=== PATIENT | male | born 1990 | race Two or more races ===

== ENCOUNTER 2022-04-25 10:29 | Emergency (ER) | payer OTHER, SELFPAY ==
--- NOTE | ~2022-04-25 | XR_ITS ---
EXAMINATION: XR CHEST CLINICAL INFORMATION: Chest pain COMPARISON: None TECHNIQUE: 2 views of the chest were obtained. FINDINGS: No significant abnormality is noted involving the heart, lungs, mediastinum, bony thorax or soft tissues. XR/XR chest 2V IMPRESSION: Unremarkable examination.
[2022-04-25 10:33] VITALS: BP 154/100; PULSE 80; RESP 16; TEMP 37; O2SAT 96; BMI 25.3
--- NOTE | 2022-04-25 10:35 | ECG_ITS ---
Test Reason : chest pain Blood Pressure : / mmHG Vent. Rate : 081 BPM Atrial Rate : 081 BPM P-R Int : 150 ms QRS Dur : 084 ms QT Int : 350 ms P-R-T Axes : 073 -45 058 degrees QTc Int : 406 ms Normal sinus rhythm with sinus arrhythmia Left axis deviation Cannot rule out Anterior infarct , age undetermined ; could also be from body habitus Abnormal ECG No previous ECGs available Referred By: Generic ED Physician Electronically Signed By:ROBERTO SANDERS
--- NOTE | 2022-04-25 10:41 | ED.CHESTPAIN ---
HPI - Chest Pain General Chief Complaint: Chest Pain Stated Complaint: Chest pain Time Seen by Provider: 04/25/22 10:41 Source: patient Mode of arrival: ambulatory Limitations: no limitations History of Present Illness HPI narrative: chest pain started 2 months ago, slow process, left side front into the back worse with movement. No Cough no shortness of breath. patient smokes marijuana. complaint: chest pain Onset (ago): month(s) Timing of current episode: episodic Prior episodes: Yes Onset: other (can happen at anytime) Pain location: left chest Pain radiation: back Severity: mild Quality: sharp Treatment prior to arrival: none Risk Factors Coronary artery disease risk factors: none Thoracic aortic dissection risk factors: none Related Data Previous Rx's Medication Instructions Recorded naproxen 500 mg tablet (Naprosyn) 500 mg PO BID #20 tabs 04/25/22 Allergies Allergy/AdvReac Type Severity Reaction Status Date / Time No Known Allergies Allergy Verified 04/25/22 10:35 Review of Systems Review of Systems: Yes all other systems are reviewed and are negative Cardiovascular: Cardiovascular: Reports chest pain, Reports chest pain at rest and Reports chest pain with activity Neurologic: Denies Sensory deficit (Neuro) [facility] Social History Social History Advance Directives: No Advance Directives Information Provided: No Physical Exam Vital Signs: Vital Signs: Last Vital Signs Temp 98.6 F 04/25/22 10:33 Pulse 80 04/25/22 10:33 Resp 16 04/25/22 10:33 BP 154/100 H 04/25/22 10:33 Pulse Ox 96 04/25/22 10:33 O2 Del Method 04/25/22 10:33 BMI result Body Mass Index 25.3 Const: General: healthy appearing Nutritional Appearance: average body habitus Orientation/consciousness: oriented to person and patient oriented x3 Limitations: no limitations HEENT: Head: Yes normal to inspection Ears: external ears normal General nose exam: Normal external nose present Mouth: Normal oral and palatal mucosa present and oropharynx normal Throat: Yes posterior oropharynx normal Eyes: General: appearance normal, both eyes and all related structures Neck: Other: supple Neck: Yes normal visual inspection Chest: Chest palpation & inspection: normal inspection of the chest Resp: Auscultation: clear to auscultation bilaterally Cardio: Jugular venous distension: no JVD Rate: regular rate Rhythm: regular rhythm Heart sounds: S1 normal heart sound present and S2 normal heart sound present GI: Inspection: Yes normal to inspection Palpation (GI): Soft to palpation, nontender and No hepatosplenomegaly present Auscultation: normal bowel sounds : General: Yes no CVA tenderness Back/Spine/Pelvis: Back: no CVA tenderness Skin: General skin exam: no rashes or lesions noted Neuro: General: oriented to person and patient oriented x3 Cranial nerves: Yes CN's II-XII intact bilaterally Motor exam (neuro): 5/5 motor strength present throughout Sensory Exam: No Sensory deficit (Neuro) Extrem: General: Yes normal to inspection Psych: Appearance: grossly normal Course Reevaluation(s) Reevaluation #1: labs xray normal, discussed with dr. Ovalle will hi home with follow uup Time: 12:56 Consultations Consultation #1: Dr. Ovalle Time: 12:56 Medical Decision Making Differential Diagnosis Acute Coronary syndrome, [place], pericarditis, PE, pneumonia all considered Admission/Observation In a patient with chest pain and an abnormal ekg, admission was considered Consult Healthcare Provider Discussed with Dr. Ovalle will [facility] with follow up Lab Data Troponin and ddimer were negative will [facility] 04/25/22 11:13 04/25/22 11:13 Labs: Lab Results 04/25/22 04/25/22 04/25/22 Range/Units 11:13 11:13 11:13 WBC 5.8 (4.8-10.8) X10*3/uL RBC 5.41 (4.60-5.80) X10*6/uL Hgb 16.1 (14.0-18.0) g/dl Hct 45.9 (42.0-52.0) % MCV 84.8 (80.0-98.0) fL MCH 29.8 (27.0-33.0) pg MCHC 35.1 (31.0-36.0) g/dl RDW 12.3 (11.0-16.0) % Plt Count 202 (160-400) X10*3/uL MPV 10.0 (9.4-12.4) fL Immature Gran % (Auto) 0.7 H (0.0-0.4) % Neut % (Auto) 54.4 (45-73) % Lymph % (Auto) 33.8 (20-40) % Amador % (Auto) 9.1 (2-11) % Eos % (Auto) 1.0 (0-4) % Baso % (Auto) 1.0 (0-2) % Lymph # (Auto) 2.0 (1.2-4.9) X10*3/uL Amador # (Auto) 0.5 (0.1-1.2) X10*3/uL Eos # (Auto) 0.1 (0.0-0.4) X10*3/uL Baso # (Auto) 0.1 (0.0-0.2) X10*3/uL Abs Immat Gran (auto) 0.04 H (0.00-0.03) X10*3/uL Absolute Neuts (auto) 3.2 (2.0-8.3) x10*3/uL Absolute Nucleated RBC 0.000 (0.0-0.012) X10*3/uL Nucleated RBC % (auto) 0.0 (0.0-0.2) /100WBC Smear Tech's Comments VERIFIED D-Dimer High Sensitivty < 150 NG/ML Sodium 143 (135-145) mmol/L Potassium 3.7 (3.3-5.1) mmol/L Chloride 106 (96-108) mmol/L Carbon Dioxide 24 (22-29) mmol/L Anion Gap 17 (12-20) BUN 12 (9-16) mg/dL Creatinine 0.96 (0.5-1.4) mg/dL Estim Creat Clear Calc 100.6 Estimated GFR > 60 Random Glucose 94 (60-115) mg/dL Calcium 10.0 (8.4-10.2) mg/dL Troponin I High Sens (<3.5-35.0) ng/L 04/25/22 Range/Units 11:13 WBC (4.8-10.8) X10*3/uL RBC (4.60-5.80) X10*6/uL Hgb (14.0-18.0) g/dl Hct (42.0-52.0) % MCV (80.0-98.0) fL MCH (27.0-33.0) pg MCHC (31.0-36.0) g/dl RDW (11.0-16.0) % Plt Count (160-400) X10*3/uL MPV (9.4-12.4) fL Immature Gran % (Auto) (0.0-0.4) % Neut % (Auto) (45-73) % Lymph % (Auto) (20-40) % Amador % (Auto) (2-11) % Eos % (Auto) (0-4) % Baso % (Auto) (0-2) % Lymph # (Auto) (1.2-4.9) X10*3/uL Amador # (Auto) (0.1-1.2) X10*3/uL Eos # (Auto) (0.0-0.4) X10*3/uL Baso # (Auto) (0.0-0.2) X10*3/uL Abs Immat Gran (auto) (0.00-0.03) X10*3/uL Absolute Neuts (auto) (2.0-8.3) x10*3/uL Absolute Nucleated RBC (0.0-0.012) X10*3/uL Nucleated RBC % (auto) (0.0-0.2) /100WBC Smear Tech's Comments D-Dimer High Sensitivty NG/ML Sodium (135-145) mmol/L Potassium (3.3-5.1) mmol/L Chloride (96-108) mmol/L Carbon Dioxide (22-29) mmol/L Anion Gap (12-20) BUN (9-16) mg/dL Creatinine (0.5-1.4) mg/dL Estim Creat Clear Calc Estimated GFR Random Glucose (60-115) mg/dL Calcium (8.4-10.2) mg/dL Troponin I High Sens < 3.5 (<3.5-35.0) ng/L Independent Interpretation I performed an independent interpretation of an: EKG Interpretation: sinus 80, old inferior old anterior septal qs Tests considered The following testing was considered but not selected: Considered CTA but ddimer was negative in a patient with no independent risk factors Discharge Plan Discharge Clinical Impression: Atypical chest pain, Chest pain Patient Disposition: Home, Self-Care Instructions: Chest Pain (ED), Noncardiac Chest Pain (ED) Prescriptions: New naproxen [Naprosyn] 500 mg tablet 500 mg PO BID Qty: 20 0RF Referrals: Jose Ovalle MD [Physician] - 1 week
[2022-04-25 11:28] LABS: Basophils Absolute Auto 0.1 X10*3/uL (0.0-0.2); Eosinophils Absolute Auto 0.1 X10*3/uL (0.0-0.4); Hematocrit 45.9 % (42.0-52.0); Hemoglobin 16.1 g/dl (14.0-18.0); Imm Gran Abs Auto 0.04 X10*3/uL (0.00-0.03); Imm Gran Pct Auto 0.7 % (0.0-0.4); Lymphocytes Percent Auto 33.8 % (20-40); MANUAL DIFF FLAG SCAN; Mean Corpuscular HGB Conc 35.1 g/dl (31.0-36.0); Mean Corpuscular Hemoglobin 29.8 pg (27.0-33.0); Mean Corpuscular Volume 84.8 fL (80.0-98.0); Monocytes Absolute Auto 0.5 X10*3/uL (0.1-1.2); Monocytes Percent Auto 9.1 % (2-11); Neutrophils Absolute Auto 3.2 x10*3/uL (2.0-8.3); Neutrophils Percent Auto 54.4 % (45-73); PLT CLUMP 1; Red Blood Count 5.41 X10*6/uL (4.60-5.80); Red Cell Distribution Width 12.3 % (11.0-16.0); SCAN SMEAR FLAG 1; White Blood Count 5.8 X10*3/uL (4.8-10.8)
[2022-04-25 11:30] LABS: D Dimer High Sensitivity < 150 NG/ML
[2022-04-25 11:54] LABS: Platelet Count 202 X10*3/uL (160-400)
[2022-04-25 11:56] LABS: SLIDE REVIEW VERIFIED
[2022-04-25 12:12] LABS: Anion Gap 17 (12-20); Blood Urea Nitrogen 12 mg/dL (9-16); Carbon Dioxide 24 mmol/L (22-29); Chloride 106 mmol/L (96-108); Creatinine Clr Calc Pharmacy 100.6; Estimated Glomerular Filt Rate > 60; Glucose Random 94 mg/dL (60-115); Potassium 3.7 mmol/L (3.3-5.1); Sodium 143 mmol/L (135-145); Troponin-I High Sensitivity < 3.5 ng/L (<3.5-35.0)
== END 2022-04-25 13:36 | disposition home or self-care (01) ==
PROVIDERS: Emergency Provider Emergency Medicine
DX: R07.89 Other chest pain (principal); F12.90 Cannabis use, unspecified, uncomplicated
CPT/HCPCS: 36415; 71046; 80048; 84484; 85025; 85379; 93005; 99283

== ENCOUNTER → 2022-04-27 14:45 | Outpatient (BNVA) | payer OTHER, SELFPAY | PROVIDERS: Visit Provider Internal Medicine | DX: R07.2 Precordial pain (principal); R06.02 Shortness of breath; R94.31 Abnormal electrocardiogram [ECG] [EKG] | CPT/HCPCS: 99202 ==

== ENCOUNTER → 2022-05-03 08:00 | Outpatient (REF) | payer OTHER, SELFPAY ==
--- NOTE | 2022-05-03 08:04 | CA_ITS ---
Acquisition Time: 2022-05-03 09:25:03 Total Exercise Time: 00:13:21 Test Indications: ABN EKG Medications: SEE CHART Protocol: DULCE MARIA Max HR: 169 BPM 89% of Pred: 189 BPM Max BP: 142/072 mmHG Max Work Load: 15.9 METS Exercise stress test with exercise 13 min 21 sec of Dulce Maria protocol, achieving 89% MPHR, 15.9 METs, with reported 7/10 left upper chest and shoulder discomfort at baseline that improved to a 5/10 with exercise, with sinus arrythmia at baseline, no other arrythmia noted, with normotensive response to exercise, without EKG changes meeting criteria for ischemia. Test reviewed with Dr Geller. Referred By: Jose Ovalle Overread By: PERICO LORD
--- NOTE | 2022-05-03 08:04 | CA_ITS ---
Transthoracic Echocardiogram Patient (Last, First, Middle): Devyn Esparza, Gender: Male Date of : 1990 Age: 32 Procedure Date: 05/03/2022 Procedure Type: Transthoracic Echocardiogram Location: OP Height: 167.64 cm Weight: 71.22 kg BSA: 1.80 m2 Heart Rate: 67 bpm BP: 128 / 68 mmHg Market Research Analyst: SB Referring MD: Jose Ovalle MD Symptoms: R07.2 - Precordial pain Study Quality: Adequate ECG Rhythm: Bradycardia Conclusions: - The left ventricular systolic function is normal. The calculated ejection fraction is 57% by biplane method. - Mildly increased right ventricular cavity size. - The right atrium is mildly dilated. - There is mild tricuspid valve regurgitation. Findings Left Ventricle Normal left ventricular cavity size. There is normal left ventricular wall thickness. The left ventricular systolic function is normal. The calculated ejection fraction is 57% by biplane method. There is no evidence of regional wall motion abnormalities. Diastolic function is normal for age. LV peak GLS -21.3%. Right Ventricle Mildly increased right ventricular cavity size. There is normal right ventricular systolic function. Atria The left atrium is normal in size. The right atrium is mildly dilated. Aortic Valve There is a normal trileaflet aortic valve. There is no aortic valve stenosis. There is no aortic valve regurgitation. Mitral Valve The mitral valve appears normal. There is trace mitral valve regurgitation. There is no mitral valve stenosis. Pulmonic Valve The pulmonic valve is likely normal. Tricuspid Valve Normal tricuspid valve structure. There is mild tricuspid valve regurgitation. There is no evidence of pulmonary hypertension. Great Vessels The asc aorta is normal in size. Venous The inferior vena cava is mildly dilated and collapses greater than 50% with inspiration. Pericardium/Pleural There is no evidence of pericardial effusion. Prior Study Comparison No prior study available for comparison. Measurements 2D Linear Measurements IVSd: 0.81 0.6-0.9/0.6-1.0 cm LVIDd: 5.26 3.9-5.3/4.2-5.9 cm LVIDd Index: 2.92 2.4-3.2/2.2-3.1 cm/m2 LVIDs: 3.51 2.0-3.6 cm LVPWd: 0.67 0.7-1.1 cm LA Diam: 3.40 2.7-3.8/3.0-4.0 cm LAIDs Index: 1.89 1.5-2.3 cm/m2 LV Mass: 166.65 67-162/88-224 g LV Mass Index: 92.58 43-95/49-115 g/m2 LVOT Diam: 2.30 3.0+(-)1.3 cm 2D Systolic Function EF 4C: 53.10 >55% EF 2C: 60.50 >55% EF BiP: 57.20 >55% Mitral Valve MV Pk E: 0.95 MV PK A: 0.29 MV Decel Time: 169.00 E/A: 3.30 E'Lateral: 14.50 E'Medial: 10.40 E/E' Med: 9.10 E/E' Lat: 6.50 PHT: 50.00 MVA PHT: 4.40 Decel Pierce: 5.59 Aortic Valve AoV Pk Stanislaw: 1.10 AoV Pk Grad: 5.00 CHANEL: 4.41 LVOT LVOT Pk Stanislaw: 1.16 LVOT Mn Stanislaw: 0.75 LVOT VTI: 0.22 LVOT Pk Grad: 5.00 LVOT Mn Grad: 3.00 LVOT Diam: 2.30 LVOT Area: 4.15 Diastolic Function MV Pk E: 0.95 MV Pk A: 0.29 E/A: 3.30 E'Medial: 10.40 E/E' Med: 9.10 E' Laterial: 14.50 E/E' Lat: 6.50 Right Ventricle TAPSE (mm): 18.70 TVS' Stanislaw: 11.50 Tricuspid Valve TR Pk Stanislaw: 2.29 TR Pk Grad: 21.00 RA Press: 8.00 RVSP: 29.00 Great Vessels Aorta Sinus of Valsalva: 3.00 2.0-3.5 cm Ao Asc: 2.80 2.1-3.4 cm Pulmonary Valve PV Pk Stanislaw: 0.79 Peak PV Grad: 2.00 Updated in Other Vendor System with Status of Final Jose Ovalle MD electronically signed on 05/03/2022 12:33:07 PM with status of Final
== END ==
LOC: HO.CARD 08:00
PROVIDERS: Visit Provider Internal Medicine
DX: R07.2 Precordial pain (principal)
CPT/HCPCS: 93017; 93306; 93356

== ENCOUNTER → 2022-06-07 15:46 | Outpatient (BNVA) | payer OTHER, SELFPAY | PROVIDERS: Visit Provider Nurse Practitioner Family | DX: Z13.89 Encounter for screening for other disorder (principal) ==

== ENCOUNTER 2022-10-21 12:59 | Emergency (ER) | payer OTHER, SELFPAY ==
[2022-10-21 13:31] VITALS: BP 125/73; PULSE 51; RESP 17; TEMP 36.3; O2SAT 98; BMI 24.8
--- NOTE | 2022-10-21 13:31 | ED.GENADULT ---
HPI - General Adult General Chief complaint: Ear Problems Stated complaint: R ear pain Time Seen by Provider: 10/21/22 13:35 Source: patient Mode of arrival: ambulatory Limitations: no limitations History of Present Illness HPI narrative: Patient is a 32 year old assigned male at with a history of tricuspid regurgitation and right atrial enlargement presenting to the emergency department today with right ear pain. Patient states that for the last 2 days he has had right ear pain and has removed wax out of it but continues to have pain. Patient denies any dizziness, lightheadedness, abdominal pain, nausea, vomiting, fever, chills, blurry vision, double vision, loss of vision, chest pain, difficulty breathing, shortness of breath, back pain, night sweats, pain with urination, increased urinary frequency, increased urinary urgency, blood in his urine or stool, syncope or a near syncopal episode, recent trauma or falls, bowel incontinence, bladder incontinence, bowel retention, bladder retention, or any other complaints at this time. Onset (ago): day(s) (2) Location: right (ear) Severity: mild Severity scale (1-10): 3 Quality: aching and dull Pain Consistency: constant Relieving factors: none Exacerbating factors: none Associated symptoms: denies other symptoms Treatments prior to arrival: none Related Data Previous Rx's Medication Instructions Recorded amoxicillin 875 mg-potassium 1 tab PO BID 7 days #14 tabs 10/21/22 clavulanate 125 mg tablet Allergies Allergy/AdvReac Type Severity Reaction Status Date / Time No Known Allergies Allergy Verified 06/07/22 15:58 Review of Systems Constitutional: Constitutional: Reports no additional constitutional complaints, Denies chills, Denies fever(s) and Denies night sweats Eyes: Eyes: Reports no additional eye complaints, Denies blurry vision, Denies change in vision, Denies diplopia, Denies eye discharge, Denies loss of vision and Denies eye pain ENT: Denies dizziness Comments: right ear pain Cardiovascular: Cardiovascular: Reports no additional cardiovascular complaints, Denies chest pain, Denies lightheadedness, Denies Loss of Consciousness and Denies dyspnea Respiratory: Respiratory: Reports no additional respiratory complaints and Denies dyspnea Gastrointestinal: Gastrointestinal: Reports no additional gastrointestinal complaints, Denies abdominal pain, Denies melena, Denies hematochezia, Denies change in bowel habits and Denies change in stool character Genitourinary: Genitourinary: Reports no additional male genitourinary complaints, Denies hematuria, Denies oliguria, Denies difficulty urinating, Denies dysuria, Denies urinary frequency, Denies urinary hesitancy, Denies urinary incontinence and Denies urinary urgency Musculoskeletal: Musculoskeletal: Reports no additional musculoskeletal complaints, Denies numbness and Denies tingling Neurologic: Denies dizziness, Denies loss of vision, Denies numbness and Denies tingling Psychiatric: Psychiatric: Reports no additional psychiatric complaints Endocrine: Endocrine: Reports no additional endocrine complaints Hematologic/Lymphatic: Hematologic/Lymphatic: Reports no additional hematologic/lymphatic complaints Allergic/Immunologic: Allergic/Immunologic: Reports no additional allergic/immunologic complaints [facility] Past Medical History Attestation statement: The following information was validated with the patient. Source: old records reviewed and nursing notes reviewed Medical History (Updated 10/21/22 @ 19:49 by MARCOS Huerta) Abnormal EKG Precordial chest pain SOB (shortness of breath) Family History Family History Father No problems noted. Mother Hypertension Depression Anxiety PTSD (post-traumatic stress disorder) Paternal Uncle Cancer Social History Social History Alcohol intake: never Patient Tobacco Use Status: Former Tobacco user Advance Directives: No Advance Directives Information Provided: Yes Physical Exam ED Vital Signs: Vital Signs - 24 hr 10/21/22 13:31 Temperature 97.3 F Pulse Rate 51 Respiratory Rate 17 Blood Pressure 125/73 Pulse Oximetry 98 Oxygen Delivery Method Room Air BMI result Body Mass Index 24.8 Const General: cooperative, no acute distress, alert and awake Nutritional Appearance: well nourished Orientation/consciousness: patient oriented x3 Limitations: no limitations HENMT Head: Yes normal to inspection and Yes atraumatic Ears: hearing grossly normal bilaterally, external ears normal and TM abnormal erythematous on the right General nose exam: Normal external nose present, no nasal discharge noted and no epistaxis Face and sinus: Yes normal facial exam, No abrasion and No laceration Mouth: Normal oral and palatal mucosa present, no drooling and no muffled voice Eyes General: appearance normal, both eyes and all related structures Periorbital: periorbital findings normal Eyelids: Yes eyelids normal Conjunctivae: conjunctivae normal Pupils: Equal, round and reactive pupils present EOM: EOMs intact bilaterally Neck Neck: Yes normal visual inspection, Yes full ROM and Yes no lymphadenopathy Chest Chest palpation & inspection: normal inspection of the chest Resp Effort & Inspection: normal respiratory effort and able to speak in complete sentences GI Inspection: Yes normal to inspection Neuro General: patient oriented x3 and moves all extremities Cranial nerves: Yes Equal, round and reactive pupils present Cognition (Neuro): normal cognition Motor exam (neuro): 5/5 motor strength present throughout Sensory Exam: Normal double simultaneous stimulation for sensation Coordination: [id number] test normal Extrem General: Yes normal to inspection, Yes full ROM and Yes capillary refill normal Psych Appearance: grossly normal Mental Status: mental status grossly normal Affect: normal affect Attitude: cooperative Thought process: Normal thought process present Thought content: Normal thought content present Insight: Good insight present (Psych) Course Course Course Narrative: RME performed by Liz Rowan PA-C. Patient is a 32 year old assigned male at presenting to the emergency department with right era pain. Medical Decision Making Medical Decision Making [facility] Narrative: Patient is a 32 year old assigned male at with a history of tricuspid regurgitation and right atrial enlargement presenting to the emergency department today with right ear pain. Patient's physical exam showed erythema to the right TM but was otherwise unremarkable. I explained my physical exam findings to the patient. I answered all questions asked by the patient. I stressed the importance of the patient taking his medication as prescribed. I stressed the importance of the patient following up with his primary care provider. I stressed the importance of the patient returning to the emergency department immediately if his symptoms were to worsen or if he were to develop any dizziness, shortness of breath, difficulty breathing, chest pain, blurry vision, loss of vision, nausea, vomiting, abdominal pain, fever, chills, back pain, or any other complaints. Patient verbalized agreement and understanding with this treatment plan and discharge. Differential Diagnosis Differential Diagnoses: The differential diagnosis associated with the presentation includes Otitis media Otitis externa Earache Prescription Management I considered prescription management with: Antibiotic (patient prescribed an antibiotic for otitis media) Discharge Plan Discharge Clinical Impression: Otitis media Patient Disposition: Home, Self-Care Instructions: Ear Infection (ED) Additional Instructions: Follow up with your primary care provider. Return to the emergency department immediately if your symptoms worsen or if you develop any dizziness, shortness of breath, difficulty breathing, chest pain, blurry vision, loss of vision, nausea, vomiting, abdominal pain, fever, chills, back pain, or any other complaints. Prescriptions: New amoxicillin-pot clavulanate 875-125 mg tablet 1 tab PO BID 7 Days Qty: 14 0RF Referrals: [facility] [place] Group] (Call to establish and follow up with a primary care provider. If you already have a primary care provider, please follow up with them.) [facility]] (Call to establish and follow up with a primary care provider. If you already have a primary care provider, please follow up with them.) [facility] [[facility]] (Call to establish and follow up with a primary care provider. If you already have a primary care provider, please follow up with them.) Interventions: ED Discharge Assessment Last Done: 10/21/22 13:52 Discharge Date/Time: 10/21/22 13:53 Print Language: Slovak
== END 2022-10-21 13:53 | disposition home or self-care (01) ==
LOC: HO.ED 13:50
PROVIDERS: Emergency Provider Emergency Medicine
DX: H66.91 Otitis media, unspecified, right ear (principal)
CPT/HCPCS: 99282; 99283

== ENCOUNTER 2022-12-21 17:31 | Emergency (ER) | payer OTHER, SELFPAY ==
--- NOTE | 2022-12-21 17:35 | ECG_ITS ---
Test Reason : chest pain Blood Pressure : / mmHG Vent. Rate : 069 BPM Atrial Rate : 069 BPM P-R Int : 154 ms QRS Dur : 086 ms QT Int : 380 ms P-R-T Axes : 064 -12 025 degrees QTc Int : 407 ms Normal sinus rhythm with sinus arrhythmia Possible Anterior infarct (cited on or before 25-APR-2022) Abnormal ECG When compared with ECG of 25-APR-2022 10:39, QRS axis Shifted right Referred By: Lindsey Álvarez Electronically Signed By:MALINI CHAMBERLAIN
[2022-12-21 17:42] VITALS: BP 135/79; PULSE 65; RESP 16; TEMP 37.4; O2SAT 97; BMI 25.7
--- NOTE | 2022-12-21 17:43 | ED.GENADULT ---
HPI - General Adult General Chief complaint: Skin/Abscess/Foreign Body Stated complaint: chest pain Time Seen by Provider: 12/21/22 17:50 Source: patient Mode of arrival: ambulatory Limitations: no limitations History of Present Illness HPI narrative: Patient is a 32-year-old male presenting to the emergency department with complaint of rash to right chest for 3 days. States he works outside, was unsure if it was a bug bite. Reports the rash is painful and pruritic, describes as throbbing pain. States the rash extends to his back as well. Denies fevers but does report some nausea. MD complaint: rash Onset (ago): day(s) Location: chest and back Severity scale (1-10): 8 Quality: burning Pain Consistency: constant Relieving factors: none Exacerbating factors: movement Associated symptoms: nausea/vomiting Treatments prior to arrival: none Related Data Previous Rx's Medication Instructions Recorded amoxicillin 875 mg-potassium 1 tab PO BID 7 days #14 tabs 10/21/22 clavulanate 125 mg tablet valacyclovir 1 gram tablet 1,000 mg PO TID #21 tabs 12/21/22 (Valtrex) Allergies Allergy/AdvReac Type Severity Reaction Status Date / Time No Known Allergies Allergy Verified 06/07/22 15:58 Review of Systems Review of Systems: As per HPI Yes all other systems are reviewed and are negative Constitutional: Constitutional: Reports as per HPI [facility] Past Medical History Medical History (Updated 12/21/22 @ 17:54 by Lindsey Álvarez NP) Abnormal EKG SOB (shortness of breath) Precordial chest pain Family History Family History Father No problems noted. Mother Hypertension Depression Anxiety PTSD (post-traumatic stress disorder) Paternal Uncle Cancer Social History Social History Alcohol intake: never Patient Tobacco Use Status: Former Tobacco user Physical Exam ED Vital Signs: Vital Signs - 24 hr 12/21/22 17:42 Temperature 99.3 F Pulse Rate 65 Respiratory Rate 16 Blood Pressure 135/79 Pulse Oximetry 97 Oxygen Delivery Method Room Air BMI result Body Mass Index 25.7 Vital signs have been reviewed and appear to be correct. Blood pressure normal. Heart rate normal. Respiratory rate normal. Temperature normal. Oxygen saturation normal. Const General: cooperative, healthy appearing and no acute distress Orientation/consciousness: oriented to person, oriented to place, oriented to time and patient oriented x3 Limitations: no limitations HENMT Head: Yes normocephalic and Yes atraumatic Ears: external ears normal General nose exam: Normal external nose present Face and sinus: Yes face symmetric Mouth: oropharynx normal and moist mucous membranes Throat: Yes uvula midline Eyes Pupils: Equal, round and reactive pupils present Neck Neck: Yes normal visual inspection and Yes supple Resp Effort & Inspection: normal respiratory effort and able to speak in complete sentences Auscultation: clear to auscultation bilaterally Cardio Rate: regular rate Rhythm: regular rhythm Heart sounds: S1 normal heart sound present and S2 normal heart sound present GI Palpation (GI): Soft to palpation and nontender Auscultation: normoactive bowel sounds General: Yes no CVA tenderness Back/Spine/Pelvis Back: no CVA tenderness Skin General skin exam: elasticity normal and turgor normal Rashes: rashes noted maculopapular rash right anterior chest , maculopapular rash right posterior arrangement clustered and distribution (dermatomal) Neuro General: oriented to person, oriented to place, oriented to time, patient oriented x3, moves all extremities, no focal motor deficits and CN's II-XI intact bilaterally Cranial nerves: Yes Equal, round and reactive pupils present Cognition (Neuro): normal cognition Extrem General: Yes full ROM, Yes no pedal edema and Yes no calf tenderness Psych Mental Status: mental status grossly normal Affect: normal affect Thought process: Normal thought process present Medical Decision Making Medical Decision Making MDM Narrative: Patient is a 32-year-old male presenting to the emergency department with complaint of rash to right chest for 3 days. On exam patient is awake, A+Ox3, VS WNL, afebrile, normal neurological exam without focal deficits, erythematous maculopapular rash to right chest and back and dermatomal distribution, no erythema migrans, no calor, lesions not crusted over. Given reported symptoms and physical exam findings, initial differential includes herpes zoster, contact dermatitis, insect bites. Physical exam findings most consistent with herpes zoster, patient updated on diagnosis and all questions answered. Will prescribe valacyclovir. for 7 days. Patient educated on precautions and to avoid the elderly, very young, individuals. Instructed patient to follow-up with primary care provider. Return precautions discussed. Patient verbalized understanding of and agreement with plan. Differential Diagnosis Differential Diagnoses: The differential diagnosis associated with the presentation includes As per MDM. External Record Review External record reviewed: Inpatient record, Office record and Outpatient record Prescription Management I considered prescription management with: Antiviral Discharge Plan Discharge Clinical Impression: Herpes zoster Qualifiers: Herpes zoster complications: without complications Qualified Code(s): B02.9 - Zoster without complications Patient Disposition: Home, Self-Care Instructions: Shingles (ED) Additional Instructions: You were evaluated in the emergency department today for rash. Your rash is consistent with a herpes zoster infection also known as shingles. You are being prescribed an antiviral medication called valacyclovir, please finish the full course of this medication as prescribed. Your symptoms should slowly improve on their own. You can use 650 mg Tylenol or 600 mg ibuprofen as needed for discomfort every 6 hours. If necessary, you can alternate these medications every 3 hours, for example at noon take Tylenol, then at 3:00 p.m. take ibuprofen, then at 6:00 p.m. take Tylenol. Please follow-up with your primary care provider. Return to the emergency department if you develop worsening pain, worsening rash, chest pain, shortness of breath, fever 100.4? F or greater, rash it your face especially no your eyes or any other concerning symptoms. You are contagious until all of your lesions have fully crusted over. Please avoid anyone very young, very old, or anyone who has never had chickenpox or has not been vaccinated against chickenpox or shingles. Prescriptions: New valacyclovir [Valtrex] 1 gram tablet 1,000 mg PO TID Qty: 21 0RF No Action amoxicillin-pot clavulanate 875-125 mg tablet 1 tab PO BID 7 Days Qty: 14 0RF Interventions: ED Discharge Assessment Last Done: 12/21/22 17:57 Discharge Date/Time: 12/21/22 17:58
== END 2022-12-21 18:07 | disposition home or self-care (01) ==
PROVIDERS: Emergency Provider Emergency Medicine Emergency Medical Services
DX: R07.89 Other chest pain (principal); B02.9 Zoster without complications; R21 Rash and other nonspecific skin eruption; Z87.891 Personal history of nicotine dependence
CPT/HCPCS: 93005; 99283

== ENCOUNTER 2023-04-30 09:43 | Emergency (ER) | payer OTHER, MEDICAID, SELFPAY ==
[2023-04-30 10:06] VITALS: BP 142/79; PULSE 64; RESP 18; TEMP 37; O2SAT 98; BMI 26.2
[2023-04-30 10:25] LABS: MANUAL DIFF FLAG NO
[2023-04-30 10:27] LABS: Basophils Percent Auto 0.7 % (0-2); Eosinophils Absolute Auto 0.1 X10*3/uL (0.0-0.4); Eosinophils Percent Auto 1.2 % (0-4); Hematocrit 42.5 % (42.0-52.0); Hemoglobin 14.4 g/dl (14.0-18.0); Imm Gran Abs Auto 0.01 X10*3/uL (0.00-0.03); Imm Gran Pct Auto 0.2 % (0.0-0.4); Lymphocytes Absolute Auto 1.4 X10*3/uL (1.2-4.9); Lymphocytes Percent Auto 23.3 % (20-40); Mean Corpuscular HGB Conc 33.9 g/dl (31.0-36.0); Mean Corpuscular Hemoglobin 29.6 pg (27.0-33.0); Mean Corpuscular Volume 87.4 fL (80.0-98.0); Monocytes Absolute Auto 0.4 X10*3/uL (0.1-1.2); Monocytes Percent Auto 6.3 % (2-11); Neutrophils Absolute Auto 4.1 x10*3/uL (2.0-8.3); Neutrophils Percent Auto 68.3 % (45-73); Platelet Count 259 X10*3/uL (160-400); Red Blood Count 4.86 X10*6/uL (4.60-5.80); Red Cell Distribution Width 12.7 % (11.0-16.0)
[2023-04-30 10:31] LABS: Appearance Urine Clear; Color Urine Yellow; Glucose Urine UA Negative (Negative); Leukocyte Esterase Urine Negative (Negative); Nitrite Urine Negative (Negative); PH >= 9.0 (5.0-9.0); UMIC TRIGGER UACC YES; Urine Blood Negative (Negative); Urine Ketones Negative (Negative); Urine Protein 30 (1+) mg/dL (Neg-Trace)
[2023-04-30 10:34] LABS: Bacteria Urine None Seen (None Seen); Hyaline Casts Urine 0-2 /LPF (0-2); RBC Urine 0-2 /HPF (0-2); Squamous Epithelial Cell Urine 0-2 /HPF (0-2); WBC Urine 0-5 /HPF (0-5)
[2023-04-30 10:59] LABS: Alanine Aminotransferase 13 U/L (0-40); Albumin Level 4.6 g/dL (3.5-5.0); Alkaline Phosphatase 58 U/L (39-117); Anion Gap 13 (12-20); Aspartate Amino Transferase 19 U/L (5-37); Bilirubin Direct 0.2 mg/dL (0.0-0.5); Bilirubin Total 0.4 mg/dL (0.0-1.0); Blood Urea Nitrogen 11 mg/dL (9-16); Carbon Dioxide 26 mmol/L (22-29); Chloride 107 mmol/L (96-108); Creatinine Clr Calc Pharmacy 111.2; Estimated Glomerular Filt Rate > 60; Glucose Random 86 mg/dL (60-115); Lipase 11 U/L (8-78); Sodium 142 mmol/L (135-145); Total Protein 7.4 g/dL (6.5-8.0)
--- OUTSIDE RECORDS SUMMARY | 2023-04-30 11:38 | XMS_ITS | Patient Health Record ---
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
--- NOTE | 2023-04-30 12:19 | ED_ITS ---
HPI - Abdominal Pain General Chief Complaint: Abdominal Pain Stated Complaint: Rectal bleed Time Seen by Provider: 04/30/23 11:40 Source: patient Mode of arrival: ambulatory Limitations: no limitations History of Present Illness HPI narrative: 33 yo male with no sig PMH here with c/o blood on toilet paper here with c/o belching and blood on toilet paper at this time no fevers, weight loss no fam hx of UC or Crohns blood is only on toilet paper when he wipes and not in bowl MD elicited complaint: other (rectal bleeding) Pertinent past history: none Onset (ago): week(s) Location: none Radiation: none Migration to: no migration Exacerbating factors: eating Relieving factors: nothing Associated symptoms: other (belching) Related Data Previous Rx's Medication Instructions Recorded amoxicillin 875 mg-potassium 1 tab PO BID 7 days #14 tabs 10/21/22 clavulanate 125 mg tablet valacyclovir 1 gram tablet 1,000 mg PO TID #21 tabs 12/21/22 (Valtrex) docusate sodium 100 mg capsule 100 mg PO BID PRN constipation #30 04/30/23 (Colace) caps famotidine 20 mg tablet (Pepcid) 20 mg PO BID PRN abdominal 04/30/23 discomfort #60 tabs ondansetron 4 mg disintegrating 4 mg PO Q8H PRN nausea and 04/30/23 tablet vomiting #20 tabs polyethylene glycol 3350 17 17 g PO DAILY PRN constipation 04/30/23 gram/dose oral powder (ClearLax) #238 grams Allergies Allergy/AdvReac Type Severity Reaction Status Date / Time No Known Allergies Allergy Verified 04/30/23 10:08 Review of Systems Review of Systems Constitutional : No Weight loss, No Fever, No Chills ENT/Mouth : No sore throat, No Rhinorrhea Eyes: No Swelling, No Redness Cardiovascular : No Chest Pain, No SOB, NoEdema Respiratory : No Cough, No Sputum, No Wheezing Gastrointestinal : no Nausea, no Vomiting, no Diarrhea, no abdominal Pain, No Hematochezia, No Melena, pos constipation Genitourinary : No Dysuria, No Urinary Frequency, No Hematuria, No Urgency Musculoskeletal : No joint pain, No Myalgias, No Joint Swelling Skin : No Skin Lesions, No rash Neuro : No Weakness, No Numbness, No Dizziness, No Headache Psych : No Anxiety/Panic, No Depression All other systems reviewed and are negative. [facility] Past Medical History Attestation statement: The following information was validated with the patient. Source: old records reviewed Medical History Abnormal EKG SOB (shortness of breath) Precordial chest pain Family History Family History Father No problems noted. Mother Hypertension Depression Anxiety PTSD (post-traumatic stress disorder) Paternal Uncle Cancer Social History Social History Alcohol intake: never Patient Tobacco Use Status: Former Tobacco user Advance Directives: No Physical Exam ED Vital Signs: Vital Signs - 24 hr 04/30/23 10:06 Temperature 98.6 F Pulse Rate 64 Respiratory Rate 18 Blood Pressure 142/79 H Pulse Oximetry 98 Oxygen Delivery Method Room Air BMI result Body Mass Index 26.2 Appearance: Alert. Oriented X3. No acute distress. Eyes: Pupils equal, round and reactive to light. ENT: Pharynx normal. Neck: Normal inspection. Neck supple. CVS: Normal heart rate and rhythm. Pulses normal. Respiratory: No respiratory distress. Breath sounds normal. Abdomen: Soft and nontender. Rectal: brown stool Skin: Skin warm and dry. Normal skin color. Normal skin turgor. Extremities: No lower extremity edema. No calf ttp Neuro: Oriented X 3. No motor deficit. No sensory deficit. Medical Decision Making Medical Decision Making MDM Narrative: 33 yo male healthy no fam hx of IBD here with blood on toilet paper and straining concern for internal hemorrhoids - he also reports belching and decreased intake at this time labs, guiac study and start on pepcid/stool softeners. He is not toxic he has abdominal ttp and no blood in digital exam. He can follow up with GI - no fevers or weight loss Differential Diagnosis Differential Diagnoses: The differential diagnosis associated with the presentation includes GERD, gastritis, hemorrhoids Admission/Observation Consideration of admission/observation: Escalation of care including admission/observation considered VS stable, H/H stable Lab Data [facility] Lab Attestation statement: I reviewed the patient's lab results. 04/30/23 10:20 01/28/24 10:20 Labs: Lab Results 04/30/23 Range/Units 10:20 WBC 6.0 (4.8-10.8) X10*3/uL RBC 4.86 (4.60-5.80) X10*6/uL Hgb 14.4 (14.0-18.0) g/dl Hct 42.5 (42.0-52.0) % MCV 87.4 (80.0-98.0) fL MCH 29.6 (27.0-33.0) pg MCHC 33.9 (31.0-36.0) g/dl RDW 12.7 (11.0-16.0) % Plt Count 259 D (160-400) X10*3/uL MPV 9.0 L (9.4-12.4) fL Immature Gran % (Auto) 0.2 (0.0-0.4) % Neut % (Auto) 68.3 (45-73) % Lymph % (Auto) 23.3 (20-40) % Frontier % (Auto) 6.3 (2-11) % Eos % (Auto) 1.2 (0-4) % Baso % (Auto) 0.7 (0-2) % Lymph # (Auto) 1.4 (1.2-4.9) X10*3/uL Frontier # (Auto) 0.4 (0.1-1.2) X10*3/uL Eos # (Auto) 0.1 (0.0-0.4) X10*3/uL Baso # (Auto) 0.0 (0.0-0.2) X10*3/uL Abs Immat Gran (auto) 0.01 (0.00-0.03) X10*3/uL Absolute Neuts (auto) 4.1 (2.0-8.3) x10*3/uL Absolute Nucleated RBC 0.000 (0.0-0.012) X10*3/uL Nucleated RBC % (auto) 0.0 (0.0-0.2) /100WBC Sodium 142 (135-145) mmol/L Potassium 4.0 (3.3-5.1) mmol/L Chloride 107 (96-108) mmol/L Carbon Dioxide 26 (22-29) mmol/L Anion Gap 13 (12-20) BUN 11 (9-16) mg/dL Creatinine 0.86 (0.5-1.4) mg/dL Estim Creat Clear Calc 111.2 Estimated GFR > 60 Random Glucose 86 (60-115) mg/dL Calcium 9.0 D (8.4-10.2) mg/dL Total Bilirubin 0.4 (0.0-1.0) mg/dL Direct Bilirubin 0.2 (0.0-0.5) mg/dL AST 19 (5-37) U/L ALT 13 (0-40) U/L Alkaline Phosphatase 58 (39-117) U/L Total Protein 7.4 (6.5-8.0) g/dL Albumin 4.6 (3.5-5.0) g/dL Lipase 11 (8-78) U/L Urine Color Yellow Urine Appearance Clear Urine pH >= 9.0 (5.0-9.0) Ur Specific [place] 1.020 (1.005-1.025) Urine Protein 30 (1+) H (Neg-Trace) mg/dL Urine Glucose (UA) Negative (Negative) mg/dL Urine Ketones Negative (Negative) mg/dL Urine Blood Negative (Negative) Urine Nitrite Negative (Negative) Ur Leukocyte Esterase Negative (Negative) Urine RBC 0-2 (0-2) /HPF Urine WBC 0-5 (0-5) /HPF Ur Squamous Epith Cells 0-2 (0-2) /HPF Urine Bacteria None Seen (None Seen) Hyaline Casts 0-2 (0-2) /LPF Independent Historian Clinical information obtained from an independent historian. History obtained from or confirmed by: Spouse Prescription Management I considered prescription management with: Other Discharge Plan Discharge Clinical Impression: Bleeding internal hemorrhoids, Bright red rectal bleeding Gastritis Qualifiers: Gastritis type: unspecified gastritis Chronicity: acute Gastritis bleeding: w ithout bleeding Qualified Code(s): K29.00 - Acute gastritis without bleeding Patient Disposition: Home, Self-Care Instructions: Gastritis (ED), Hemorrhoids (ED), Rectal Bleeding (ED) Additional Instructions: return for worsening bleeding or dizziness/pain/fevers. avoid aspirin, motrin, aleve, ibuprofen follow up with your doctor and GI doctor. Prescriptions: New famotidine [Pepcid] 20 mg tablet 20 mg PO BID PRN (Reason: abdominal discomfort) Qty: 60 0RF docusate sodium [Colace] 100 mg capsule 100 mg PO BID PRN (Reason: constipation) Qty: 30 0RF ondansetron 4 mg tablet,disintegrating 4 mg PO Q8H PRN (Reason: nausea and vomiting) Qty: 20 0RF polyethylene glycol 3350 [ClearLax] 17 gram/dose powder 17 g PO DAILY PRN (Reason: constipation) Qty: 238 0RF No Action amoxicillin-pot clavulanate 875-125 mg tablet 1 tab PO BID 7 Days Qty: 14 0RF valacyclovir [Valtrex] 1 gram tablet 1,000 mg PO TID Qty: 21 0RF Referrals: Devi Gaytan MD [Physician] - (perfect binder feeder offbearer call to follow up and make appointmetn)
[2023-04-30 12:56] LABS: OBS Int Ctl Valid YES; OBS1 NEGATIVE (NEGATIVE)
[2023-04-30 13:20] VITALS: BP 132/82; PULSE 58; RESP 18; TEMP 36.7; O2SAT 98
== END 2023-04-30 13:24 | disposition home or self-care (01) ==
PROVIDERS: Emergency Provider Emergency Medicine
DX: K29.00 Acute gastritis without bleeding (principal); K92.1 Melena; Z79.899 Other long term (current) drug therapy
CPT/HCPCS: 36415; 80048; 80076; 81001; 82272; 83690; 85025; 99283

== ENCOUNTER 2023-05-29 07:54 | Outpatient (AMB) | payer OTHER, SELFPAY ==
--- NOTE | 2023-05-29 08:15 | A.OFFVIS_ITS ---
Intake Vital Signs 05/29/23 08:16 Height 5 ft 6 in Weight 167 lb 15.876 oz BMI 27.1 BP 120/82 Blood Pressure Location Lt brachial Position Sitting Pulse 58 Pulse Source Pulse Oximeter Intake Visit Reasons: 1 year follow up,echo denied by ins. Intake Note: pt still feeling chest pain Custom Applicator Required: No Stacker Operator: Stacker Operator Present Allergies No Known Allergies Allergy (Verified 05/29/23 08:19) Medication List - Last Reconciled 05/29/23 by Stephany Rogers NP-C docusate sodium (Colace) 100 mg PO BID PRN famotidine (Pepcid) 20 mg PO BID PRN ondansetron 4 mg PO Q8H PRN polyethylene glycol 3350 (ClearLax) 17 grams PO DAILY PRN HPI 1 year follow up,echo denied by ins. HPI0 Details Devyn is a 33 yr old male with PMH of smoking, atypical chest discomfort, anterior Q waves on EKG and echo showing mild RA and RV dilation who presents for followup. Today he states that he continues to have chest discomfort that causes him much concern. He feels over the last year had as increased. Does feel it more with certain body positions such as bending over or if he takes a deep breath in. He is describing more on the right side of his chest and says it is on the inside and not superficial. He will notice some symptoms with physical activity but states walking or stair climbing does not usually bring the symptom on. No concerning shortness of breath, palpitations, presyncope, syncope, PND, orthopnea or edema. He has history of previously smoking cigarettes which he did stop but now states he smokes marijuana daily. He will have an occasional cough related to this. Significant other is present. She has no concerns about him having sleep apnea and denies that he snores or holds his breath during sleep. [facility] Medical History Abnormal EKG SOB (shortness of breath) Precordial chest pain Family History Father No problems noted. Mother Hypertension Depression Anxiety PTSD (post-traumatic stress disorder) Paternal Uncle Cancer Social History Alcohol intake: never Patient Tobacco Use Status: Former Tobacco user Substance Use Type: Marijuana Review of Systems Const All systems reviewed & are unremarkable except as noted in HPI and below ENT Denies dizziness Card Reports chest pain, Reports chest pain at rest, Reports chest pain with activity, Denies rapid heart rate, Denies pedal edema, Denies edema, Denies leg edema, Denies lightheadedness, Denies palpitations, Denies dyspnea, Denies dyspnea on exertion and Denies orthopnea Resp Denies cough, Denies dyspnea and Denies dyspnea on exertion GI Denies hematochezia and Denies change in stool character Musc Denies abnormal gait, Denies limited range of motion, Denies muscle cramps, Denies muscle weakness, Denies numbness, Denies radiating pain into limb, Denies stiffness and Denies tingling Neuro Denies abnormal gait, Denies dizziness, Denies numbness and Denies tingling Endo Denies palpitations Physical Exam Vital Signs: Last Vital Signs Pulse 58 05/29/23 08:16 BP 120/82 05/29/23 08:16 BMI result Body Mass Index 27.1 Const General: cooperative, healthy appearing, comfortable and no acute distress Orientation/consciousness: patient oriented x3 Neck Neck: Yes normal visual inspection and Yes no JVD Resp Effort & Inspection: normal respiratory effort Auscultation: clear to auscultation bilaterally, no crackles, no rales, no rhonchi and no wheezes Cardio Jugular venous distension: no JVD Rate: regular rate Rhythm: regular rhythm Heart sounds: S1 normal heart sound present, S2 normal heart sound present, no gallops, no murmurs and no rubs Peripheral pulses: Peripheral pulses 2+ throughout Neuro General: patient oriented x3 Extrem General: Yes normal to inspection, No no pedal edema and No calf tenderness Psych Appearance: grossly normal Mental Status: mental status grossly normal Speech and movement: Normal speech and movement present Assessment & Plan Assessment & Plan (1) Precordial chest pain: Code(s): R07.2 - Precordial pain Plan: Atypical chest discomfort with prior ED eval last year, no ACS and PE. EKG 04/25/22 showed SR, anterior Q waves. No Cardiac hx. Cardiac risk of smoking. He had exercise stress test on 05/03/22 with exercise 13 min 21 sec, with improvement in baseline atypical left chest discomfort, without EKG changes of ischemia. Echocardiogram done on 05/03/22 showed EF 57%, mild increase in RV size, RA mildly dilated, mild TR. Today he reports that his chest discomfort is still present and has worsened over the last year. It is still atypical in description. He is smoking marijuana daily but denies any other drug use. With abnormal finding on his EKG will plan for a stress echocardiogram to further evaluate for any ischemia. He was previously felt that his discomfort was musculoskeletal in nature as it still may be. His EKG finding could be related to lead placement versus nonspecific abnormality. Plan to call him with test results. Reviewed with him that his Right heart findings on echocardiogram are more likely related to underlying pulmonary issues. CXR and D dimer were normal on 04/25/22. He did smoke cigarettes for many years and now smokes marijuana. He does have an intermittent cough. Further pulmonary evaluation can be managed/discussed with PCP. Strongly encouraged to avoid restarting smoking. Cardiology follow-up to be determined following stress echocardiogram. If stress echo is normal then cardiology follow-up will most likely be 1 year. (2) Abnormal EKG: Code(s): R94.31 - Abnormal electrocardiogram [ECG] [EKG] Plan: Septal Q-wave (3) Right atrial enlargement: Comment: mild Code(s): I51.7 - Cardiomegaly Plan: Repeat echo was done by his insurance. No reports of shortness of breath or concerning pulmonary issues. He does smoke and has an intermittent cough. (4) Tricuspid regurgitation: Comment: mild Code(s): I07.1 - Rheumatic tricuspid insufficiency Plan: As above Plan Time spent on chart review, documentation, interview and assessment Orders: Orders CA echo stress exercise Today R07.89 - Other chest pain, R94.31 - Abnormal electrocardiogram [ECG] [EKG] Coding Level of Care Code Est Pt Level 3 (38964) Diagnoses Precordial chest pain R07.2 Abnormal EKG R94.31 Right atrial enlargement I51.7 Tricuspid regurgitation I07.1 Time Spent (min) 24
[2023-05-29 08:16] VITALS: BP 120/82; PULSE 58; BMI 27.1
== END 2023-05-29 08:41 | disposition home or self-care (01) ==
PROVIDERS: Visit Provider Nurse Practitioner Family
DX: R07.2 Precordial pain (principal); R94.31 Abnormal electrocardiogram [ECG] [EKG]; I07.1 Rheumatic tricuspid insufficiency
CPT/HCPCS: 99213

== ENCOUNTER → 2023-05-29 07:54 | Outpatient (BNVA) | payer OTHER, SELFPAY | PROVIDERS: Visit Provider Nurse Practitioner Family ==

== ENCOUNTER 2023-10-31 18:17 | Emergency (ER) | payer SELFPAY ==
--- NOTE | ~2023-10-31 | CT_ITS ---
EXAMINATION: CT ABDOMEN AND PELVIS WITH CONTRAST CLINICAL INFORMATION: Left-sided abdominal pain COMPARISON: None available. TECHNIQUE: Multidetector volumetric images were obtained from the superior aspect of the liver through the pubic symphysis following administration 85 mL of Omnipaque 350 intravenous contrast. Sagittal and coronal reformatted images were obtained on the technologist's workstation. Oral contrast: No This CT examination was performed using dose optimization techniques as appropriate, variously including the following: *Automated exposure control *Adjustment of mA and/or kV according to patient size (this includes techniques or standardized protocols for targeted exams where dose is matched to indication/reason for exam; i.e. extremities or head) *Use of iterative reconstruction technique DLP: 402 mGy-cm FINDINGS: LUNG BASES: Partially visualized nodule in the left upper lobe on the uppermost axial image measures up to 5 mm. LIVER, GALLBLADDER, AND BILIARY TREE: The liver is normal in size, shape, and attenuation. No focal hepatic lesion or biliary ductal dilatation is present. The gallbladder is unremarkable with no evidence of radiopaque gallstones, gallbladder wall thickening, or obvious pericholecystic inflammatory changes. PANCREAS: Unremarkable. SPLEEN: Unremarkable. ADRENAL GLANDS: Unremarkable. KIDNEYS AND URETERS: Right kidney appears malrotated. Bilateral nephrograms are symmetric. No hydronephrosis or obstructing calculus bilaterally. BLADDER: Mildly distended and grossly unremarkable. GASTROINTESTINAL TRACT: No evidence of bowel obstruction or significant wall thickening. Patient is suspected to be status post appendectomy. No free fluid or free air is seen. ABDOMINAL WALL: No significant hernia is appreciated. LYMPH NODES: Normal. VASCULAR: Circumaortic left renal vein noted. PELVIC VISCERA: Unremarkable. OSSEOUS STRUCTURES: Unremarkable. CT/CT abdomen pelvis w IV con IMPRESSION: 1. No acute findings identified in the abdomen/pelvis. 2. Partially visualized left upper lobe lung nodule measuring up to 5 mm. Although statistically likely benign in the absence of clinical risk factors, follow-up chest CT in 3 months would be helpful in the absence of prior studies to establish chronicity.
[2023-10-31 19:20] VITALS: BP 133/64; PULSE 58; RESP 16; TEMP 36.6; O2SAT 98; BMI 26.8
--- NOTE | 2023-10-31 19:20 | ED.ABDPAIN ---
HPI - Abdominal Pain General Chief Complaint: Abdominal Pain Stated Complaint: Personal Time Seen by Provider: 11/01/23 00:09 Related Data Previous Rx's ?Medication ?Instructions ?Recorded docusate sodium 100 mg capsule 100 mg PO BID PRN constipation #30 04/30/23 (Colace) caps famotidine 20 mg tablet (Pepcid) 20 mg PO BID PRN abdominal 04/30/23 discomfort #60 tabs ondansetron 4 mg disintegrating 4 mg PO Q8H PRN nausea and 04/30/23 tablet vomiting #20 tabs polyethylene glycol 3350 17 17 g PO DAILY PRN constipation 04/30/23 gram/dose oral powder (ClearLax) #238 grams Allergies Allergy/AdvReac Type Severity Reaction Status Date / Time No Known Allergies Allergy Verified 10/31/23 19:24 [facility] Past Medical History Medical History Abnormal EKG SOB (shortness of breath) Precordial chest pain Family History Family History Father No problems noted. Mother Hypertension Depression Anxiety PTSD (post-traumatic stress disorder) Paternal Uncle Cancer Social History Social History Alcohol intake: never Patient Tobacco Use Status: Former Tobacco user Smoked in Last 30 Days: No Use of substances other than those prescribed or required for medical reasons: No Substance Use Type: Marijuana Advance Directives: No Advance Directives Information Provided: No Do you have a plan to hurt others: No Plan Physical Exam ED Vital Signs: Vital Signs - 24 hr 10/31/23 19:20 11/01/23 01:33 Temperature 97.9 F 98.3 F Pulse Rate 58 50 Respiratory Rate 16 18 Blood Pressure 133/64 136/50 L Pulse Oximetry 98 99 Oxygen Delivery Method Room Air Room Air BMI result Body Mass Index 26.8 Course Course Course Narrative: This is a Rapid Medical Examination (RME) performed by Maile León PA-C in triage. Full HPI, ROS, assessment and treatment plan per primary provider in the Main ED. 33 yo male presents to the ER for evaluation of transient left sided abdominal pain that happened yesterday after he ate along with a bloody BM x1. blood mixed w/ brown stool yesterday. no further episodes. has had normal BM since then without bleeding. denies recent constipation. hx similar presentation in April and found to have hemorrhoids. reports this episode is different bc of pain and bloating sensation today. Plan: labs, rectal exam Medical Decision Making Lab Data 10/31/23 19:50 10/31/23 19:50 Labs: Lab Results 10/31/23 10/31/23 11/01/23 Range/Units 19:50 22:58 01:37 WBC 9.1 (4.8-10.8) X10*3/uL RBC 4.82 (4.60-5.80) X10*6/uL Hgb 14.6 (14.0-18.0) g/dl Hct 42.1 (42.0-52.0) % MCV 87.3 (80.0-98.0) fL MCH 30.3 (27.0-33.0) pg MCHC 34.7 (31.0-36.0) g/dl RDW 12.7 (11.0-16.0) % Plt Count 283 (160-400) X10*3/uL MPV 8.8 L (9.4-12.4) fL Immature Gran % (Auto) 0.1 (0.0-0.4) % Neut % (Auto) 68.8 (45-73) % Lymph % (Auto) 24.3 (20-40) % [place] % (Auto) 6.2 (2-11) % Eos % (Auto) 0.2 (0-4) % Baso % (Auto) 0.4 (0-2) % Lymph # (Auto) 2.2 (1.2-4.9) X10*3/uL [place] # (Auto) 0.6 (0.1-1.2) X10*3/uL Eos # (Auto) 0.0 (0.0-0.4) X10*3/uL Baso # (Auto) 0.0 (0.0-0.2) X10*3/uL Abs Immat Gran (auto) 0.01 (0.00-0.03) X10*3/uL Absolute Neuts (auto) 6.2 (2.0-8.3) x10*3/uL Absolute Nucleated RBC 0.000 (0.0-0.012) X10*3/uL Nucleated RBC % (auto) 0.0 (0.0-0.2) /100WBC Sodium 140 (135-145) mmol/L Potassium 3.9 (3.3-5.1) mmol/L Chloride 105 (96-108) mmol/L Carbon Dioxide 24 (22-29) mmol/L Anion Gap 15 (12-20) BUN 12 (9-16) mg/dL Creatinine 0.97 (0.5-1.4) mg/dL Estim Creat Clear Calc 95.1 Estimated GFR > 60 Random Glucose 87 (60-115) mg/dL Calcium 9.3 (8.4-10.2) mg/dL Magnesium 2.1 (1.6-2.6) mg/dL Total Bilirubin 0.7 (0.0-1.0) mg/dL Direct Bilirubin 0.2 (0.0-0.5) mg/dL AST 45 H (5-37) U/L ALT 27 (0-40) U/L Alkaline Phosphatase 61 (39-117) U/L Total Protein 7.4 (6.5-8.0) g/dL Albumin 4.6 (3.5-5.0) g/dL Urine Color Yellow Urine Appearance Clear Urine pH 5.5 (5.0-9.0) Ur Specific [place] >= 1.030 H (1.005-1.025) Urine Protein Trace (Neg-Trace) mg/dL Urine Glucose (UA) Negative (Negative) mg/dL Urine Ketones 40 (Negative) mg/dL Urine Blood Negative (Negative) Urine Nitrite Negative (Negative) Ur Leukocyte Esterase Negative (Negative) Urine RBC 0-2 (0-2) /HPF Urine WBC 0-5 (0-5) /HPF Ur Squamous Epith Cells 0-2 (0-2) /HPF Urine Bacteria None Seen (None Seen) Hyaline Casts 0-2 (0-2) /LPF Stool Occult Blood NEGATIVE (NEGATIVE) Medications Administered Discontinued Medications Generic Name Dose Route Start Last Admin Trade Name Freq PRN Reason Stop Dose Admin Iohexol 85 ml 11/01/23 01:10 11/01/23 01:11 Iohexol 350 Mg/Ml 100 Ml Infus..Btl IV 07/31/24 01:11 85 ml ONCE ONE Administration Discharge Plan Discharge Clinical Impression: Hemorrhoids, external, Abdominal pain in male Patient Disposition: Home, Self-Care Instructions: Abdominal Pain (ED) Additional Instructions: A pulmonary nodule was found at the base of your lung. Repeat CT scan of the chest is warranted in 3 months. Prescriptions: No Action famotidine [Pepcid] 20 mg tablet 20 mg PO BID PRN (Reason: abdominal discomfort) Qty: 60 0RF docusate sodium [Colace] 100 mg capsule 100 mg PO BID PRN (Reason: constipation) Qty: 30 0RF ondansetron 4 mg tablet,disintegrating 4 mg PO Q8H PRN (Reason: nausea and vomiting) Qty: 20 0RF polyethylene glycol 3350 [ClearLax] 17 gram/dose powder 17 g PO DAILY PRN (Reason: constipation) Qty: 238 0RF Referrals: [facility] [Physician] - (A pulmonary nodule was found at the base of your lung. A repeat CT scan of the chest is warranted in 3 months.) Print Language: Welsh
--- NOTE | 2023-10-31 19:51 | MHC.EDTECH ---
Patient brought into triage area,labs drawn and sent to lab,patient brought back to waiting room.
[2023-10-31 19:56] LABS: MANUAL DIFF FLAG NO
[2023-10-31 19:58] LABS: Basophils Percent Auto 0.4 % (0-2); Eosinophils Percent Auto 0.2 % (0-4); Hematocrit 42.1 % (42.0-52.0); Hemoglobin 14.6 g/dl (14.0-18.0); Imm Gran Abs Auto 0.01 X10*3/uL (0.00-0.03); Imm Gran Pct Auto 0.1 % (0.0-0.4); Lymphocytes Absolute Auto 2.2 X10*3/uL (1.2-4.9); Lymphocytes Percent Auto 24.3 % (20-40); Mean Corpuscular HGB Conc 34.7 g/dl (31.0-36.0); Mean Corpuscular Hemoglobin 30.3 pg (27.0-33.0); Mean Corpuscular Volume 87.3 fL (80.0-98.0); Mean Platelet Volume 8.8 fL (9.4-12.4); Monocytes Absolute Auto 0.6 X10*3/uL (0.1-1.2); Monocytes Percent Auto 6.2 % (2-11); Neutrophils Absolute Auto 6.2 x10*3/uL (2.0-8.3); Neutrophils Percent Auto 68.8 % (45-73); Platelet Count 283 X10*3/uL (160-400); Red Blood Count 4.82 X10*6/uL (4.60-5.80); Red Cell Distribution Width 12.7 % (11.0-16.0); White Blood Count 9.1 X10*3/uL (4.8-10.8)
[2023-10-31 20:18] LABS: Alanine Aminotransferase 27 U/L (0-40); Albumin Level 4.6 g/dL (3.5-5.0); Alkaline Phosphatase 61 U/L (39-117); Anion Gap 15 (12-20); Aspartate Amino Transferase 45 U/L (5-37); Bilirubin Direct 0.2 mg/dL (0.0-0.5); Bilirubin Total 0.7 mg/dL (0.0-1.0); Blood Urea Nitrogen 12 mg/dL (9-16); Calcium 9.3 mg/dL (8.4-10.2); Carbon Dioxide 24 mmol/L (22-29); Chloride 105 mmol/L (96-108); Creatinine Clr Calc Pharmacy 95.1; Estimated Glomerular Filt Rate > 60; Glucose Random 87 mg/dL (60-115); Magnesium 2.1 mg/dL (1.6-2.6); Potassium 3.9 mmol/L (3.3-5.1); Sodium 140 mmol/L (135-145); Total Protein 7.4 g/dL (6.5-8.0)
[2023-10-31 23:04] LABS: Appearance Urine Clear; Color Urine Yellow; Glucose Urine UA Negative (Negative); Leukocyte Esterase Urine Negative (Negative); Nitrite Urine Negative (Negative); PH 5.5 (5.0-9.0); Specific Gravity - Urine >= 1.030 (1.005-1.025); Urine Blood Negative (Negative); Urine Ketones 40 mg/dL (Negative); Urine Protein Trace mg/dL (Neg-Trace)
[2023-10-31 23:09] LABS: Bacteria Urine None Seen (None Seen); Hyaline Casts Urine 0-2 /LPF (0-2); RBC Urine 0-2 /HPF (0-2); Squamous Epithelial Cell Urine 0-2 /HPF (0-2); WBC Urine 0-5 /HPF (0-5)
--- NOTE | 2023-11-01 00:50 | ED.ABDPAIN ---
HPI - Abdominal Pain General Chief Complaint: Abdominal Pain Stated Complaint: Personal Time Seen by Provider: 11/01/23 00:09 History of Present Illness HPI narrative: Patient is a 33-year-old male presents today with having abdominal pain for 1 day it is over the left side it is associated with some bloating. Patient noted some blood in his stool. He claims the stool was formed. He has no fever no chills. No chest pain or shortness of breath. No history of abdominal surgery. Patient from home. Not on blood thinners. Related Data Previous Rx's ?Medication ?Instructions ?Recorded docusate sodium 100 mg capsule 100 mg PO BID PRN constipation #30 04/30/23 (Colace) caps famotidine 20 mg tablet (Pepcid) 20 mg PO BID PRN abdominal 04/30/23 discomfort #60 tabs ondansetron 4 mg disintegrating 4 mg PO Q8H PRN nausea and 04/30/23 tablet vomiting #20 tabs polyethylene glycol 3350 17 17 g PO DAILY PRN constipation 04/30/23 gram/dose oral powder (ClearLax) #238 grams Allergies Allergy/AdvReac Type Severity Reaction Status Date / Time No Known Allergies Allergy Verified 10/31/23 19:24 Review of Systems Review of Systems Positive abdominal pain Yes all other systems are reviewed and are negative PMFSH Past Medical History Attestation statement: The following information was validated with the patient. Medical History Abnormal EKG SOB (shortness of breath) Precordial chest pain Family History Family History Father No problems noted. Mother Hypertension Depression Anxiety PTSD (post-traumatic stress disorder) Paternal Uncle Cancer Social History Social History Alcohol intake: never Patient Tobacco Use Status: Former Tobacco user Smoked in Last 30 Days: No Use of substances other than those prescribed or required for medical reasons: No Substance Use Type: Marijuana Advance Directives: No Advance Directives Information Provided: No Do you have a plan to hurt others: No Plan Physical Exam ED Vital Signs: Vital Signs - 24 hr 10/31/23 19:20 11/01/23 01:33 Temperature 97.9 F 98.3 F Pulse Rate 58 50 Respiratory Rate 16 18 Blood Pressure 133/64 136/50 L Pulse Oximetry 98 99 Oxygen Delivery Method Room Air Room Air BMI result Body Mass Index 26.8 Appearance: Alert. Oriented X3. No acute distress. Eyes: Pupils equal, round and reactive to light. ENT: Pharynx normal. Neck: Normal inspection. Neck supple. No lymph nodes noted. No crepitus CVS: Normal heart rate and rhythm. Pulses normal. Normal S1 and S2 Respiratory: No respiratory distress. Breath sounds normal. No Wheezing. No rales Abdomen: Soft and nontender. No rigidity. No distention. good BS x4 Skin: Skin warm and dry. Normal skin color. Normal skin turgor. Rectal exam showed only mucus. No gross blood noted. Extremities: No lower extremity edema. Neurovascular intact to all extremities. No Lacerations. No Rash Neuro: Oriented X 3. No motor deficit. No sensory deficit. Moving all extermities. No slurred speech Medical Decision Making Medical Decision Making [facility] Narrative: Patient presents today with having bloody stool also having left-sided abdominal pain. CT scan of the abdomen pelvis showed no acute evidence of diverticulitis. No kidney stone no obstruction no abscess. A pulmonary nodule was noted. Patient will require follow-up on an outpatient basis. Currently in stable condition. Patient's stool was actually guaiac negative. His hemoglobin is 14.6. Differential Diagnosis Differential Diagnoses: The differential diagnosis associated with the presentation includes Diverticulitis, kidney stone, obstruction, abscess Admission/Observation Consideration of admission/observation: Escalation of care including admission/observation considered Consult Healthcare Provider Management of the patient was discussed with: Hospitalist Lab Data [facility] Lab Attestation statement: I reviewed the patient's lab results. 10/31/23 19:50 10/31/23 19:50 Labs: Lab Results 10/31/23 10/31/23 11/01/23 Range/Units 19:50 22:58 01:37 WBC 9.1 (4.8-10.8) X10*3/uL RBC 4.82 (4.60-5.80) X10*6/uL Hgb 14.6 (14.0-18.0) g/dl Hct 42.1 (42.0-52.0) % MCV 87.3 (80.0-98.0) fL MCH 30.3 (27.0-33.0) pg MCHC 34.7 (31.0-36.0) g/dl RDW 12.7 (11.0-16.0) % Plt Count 283 (160-400) X10*3/uL MPV 8.8 L (9.4-12.4) fL Immature Gran % (Auto) 0.1 (0.0-0.4) % Neut % (Auto) 68.8 (45-73) % Lymph % (Auto) 24.3 (20-40) % [place] % (Auto) 6.2 (2-11) % Eos % (Auto) 0.2 (0-4) % Baso % (Auto) 0.4 (0-2) % Lymph # (Auto) 2.2 (1.2-4.9) X10*3/uL [place] # (Auto) 0.6 (0.1-1.2) X10*3/uL Eos # (Auto) 0.0 (0.0-0.4) X10*3/uL Baso # (Auto) 0.0 (0.0-0.2) X10*3/uL Abs Immat Gran (auto) 0.01 (0.00-0.03) X10*3/uL Absolute Neuts (auto) 6.2 (2.0-8.3) x10*3/uL Absolute Nucleated RBC 0.000 (0.0-0.012) X10*3/uL Nucleated RBC % (auto) 0.0 (0.0-0.2) /100WBC Sodium 140 (135-145) mmol/L Potassium 3.9 (3.3-5.1) mmol/L Chloride 105 (96-108) mmol/L Carbon Dioxide 24 (22-29) mmol/L Anion Gap 15 (12-20) BUN 12 (9-16) mg/dL Creatinine 0.97 (0.5-1.4) mg/dL Estim Creat Clear Calc 95.1 Estimated GFR > 60 Random Glucose 87 (60-115) mg/dL Calcium 9.3 (8.4-10.2) mg/dL Magnesium 2.1 (1.6-2.6) mg/dL Total Bilirubin 0.7 (0.0-1.0) mg/dL Direct Bilirubin 0.2 (0.0-0.5) mg/dL AST 45 H (5-37) U/L ALT 27 (0-40) U/L Alkaline Phosphatase 61 (39-117) U/L Total Protein 7.4 (6.5-8.0) g/dL Albumin 4.6 (3.5-5.0) g/dL Urine Color Yellow Urine Appearance Clear Urine pH 5.5 (5.0-9.0) Ur Specific [place] >= 1.030 H (1.005-1.025) Urine Protein Trace (Neg-Trace) mg/dL Urine Glucose (UA) Negative (Negative) mg/dL Urine Ketones 40 (Negative) mg/dL Urine Blood Negative (Negative) Urine Nitrite Negative (Negative) Ur Leukocyte Esterase Negative (Negative) Urine RBC 0-2 (0-2) /HPF Urine WBC 0-5 (0-5) /HPF Ur Squamous Epith Cells 0-2 (0-2) /HPF Urine Bacteria None Seen (None Seen) Hyaline Casts 0-2 (0-2) /LPF Stool Occult Blood NEGATIVE (NEGATIVE) Radiology Impression Discussion of test interpretation with radiology: I have reviewed the radiologist's reading. Social Determinants Patient?s care significantly limited by Social Determinants of Health including: Problems related to primary support group Medications Administered Discontinued Medications Generic Name Dose Route Start Last Admin Trade Name Freq PRN Reason Stop Dose Admin Iohexol 85 ml 11/01/23 01:10 11/01/23 01:11 Iohexol 350 Mg/Ml 100 Ml Infus..Btl IV 11/01/23 01:11 85 ml ONCE ONE Administration Discharge Plan Discharge Clinical Impression: Hemorrhoids, external, Abdominal pain in male Patient Disposition: Home, Self-Care Instructions: Abdominal Pain (ED) Additional Instructions: A pulmonary nodule was found at the base of your lung. Repeat CT scan of the chest is warranted in 3 months. Prescriptions: No Action famotidine [Pepcid] 20 mg tablet 20 mg PO BID PRN (Reason: abdominal discomfort) Qty: 60 0RF docusate sodium [Colace] 100 mg capsule 100 mg PO BID PRN (Reason: constipation) Qty: 30 0RF ondansetron 4 mg tablet,disintegrating 4 mg PO Q8H PRN (Reason: nausea and vomiting) Qty: 20 0RF polyethylene glycol 3350 [ClearLax] 17 gram/dose powder 17 g PO DAILY PRN (Reason: constipation) Qty: 238 0RF Referrals: [place] [Physician] - (A pulmonary nodule was found at the base of your lung. A repeat CT scan of the chest is warranted in 3 months.) Print Language: Jordanian
[2023-11-01] MEDS: iohexoL 350 MG/ML 100 ML INFUS..BTL 85 ML IV (01:11)
[2023-11-01 01:33] VITALS: BP 136/50; PULSE 50; RESP 18; TEMP 36.8; O2SAT 99
[2023-11-01 01:42] LABS: OBS Int Ctl Valid YES; OBS1 NEGATIVE (NEGATIVE)
[2023-11-01 04:18] VITALS: BP 136/50; PULSE 50; RESP 18; TEMP 36.8; O2SAT 99
== END 2023-11-01 04:20 | disposition home or self-care (01) ==
PROVIDERS: Physician Assistant; Emergency Provider Emergency Medicine Emergency Medical Services
DX: K64.4 Residual hemorrhoidal skin tags (principal); R10.9 Unspecified abdominal pain; F12.90 Cannabis use, unspecified, uncomplicated; Z87.891 Personal history of nicotine dependence
CPT/HCPCS: 36415; 74177; 80048; 80076; 81001; 82272; 83735; 85025; 99284; Q9967

== ENCOUNTER 2024-08-15 08:34 | Emergency (ER) | payer OTHER, SELFPAY ==
--- NOTE | ~2024-08-15 | CT_ITS ---
EXAMINATION: CT CERVICAL SPINE WITHOUT CONTRAST CLINICAL INFORMATION: Trauma, pain. COMPARISON: Plain films cervical spine earlier same day. TECHNIQUE: Spiral CT imaging of the cervical spine performed in axial plane without contrast. Multiplanar reformatted images were constructed from the axial data set. This CT examination was performed using dose optimization techniques as appropriate, variously including the following: *Automated exposure control *Adjustment of mA and/or kV according to patient size (this includes techniques or standardized protocols for targeted exams where dose is matched to indication/reason for exam; i.e. extremities or head) *Use of iterative reconstruction technique FINDINGS: CORONAL ALIGNMENT: -Minimal levoconvex scoliosis, possibly positional. SAGITTAL ALIGNMENT: -Normal lordosis and alignment. C1-C2 AND CRANIOCERVICAL JUNCTION: -Intact and aligned normally. VERTEBRAL BODIES AND FACETS: -No fracture, gross compression deformity, or suspicious bone lesion. No evidence of traumatic subluxation. -Normal facet alignment bilaterally. -Minimal ventral wedging of T1, felt to lie within the realm of normal variation. DISCS: -Preserved at all levels. CENTRAL CANAL: -No evidence of high-grade central canal narrowing or large disc herniation allowing for modality limitations. PREVERTEBRAL AND PARAVERTEBRAL SOFT TISSUES: -No prevertebral or paravertebral soft tissue edema or swelling. No abnormal fluid collection. -Normal thyroid. -No mass or adenopathy within the neck. LUNG APICES: -Clear bilaterally. IMAGED INTRACRANIAL STRUCTURES: -Normal. CT/CT cervical spine wo IV con IMPRESSION: 1. No CT evidence of acute cervical spine fracture or injury. 2. Minimal ventral wedging of T1, felt to lie within the realm of normal variation. Electronically signed by: Chidi Hawkins MD 08/15/2024 01:01 PM EDT
--- NOTE | ~2024-08-15 | XR_ITS ---
EXAMINATION: XR CERVICAL SPINE 2-3 VIEWS HISTORY: pain COMPARISON: There are no prior studies for comparison. FINDINGS: AP, lateral, and open-mouth odontoid views of the cervical spine are submitted. Osseous mineralization is normal. Seven cervical vertebral bodies are identified maintaining normal height and alignment without evidence of fracture or subluxation. There is slight depression involving the inferior endplate of T1 of uncertain significance. The intervertebral disc spaces are preserved. The odontoid and lateral masses of C1 are intact. There is no prevertebral soft tissue swelling. XR/XR cervical spine 3V IMPRESSION: Slight depression of the inferior endplate of T1 of uncertain significance. If there is a history of trauma, CT could be performed. Electronically signed by: Huang Pepe MD 08/15/2024 10:32 AM EDT
[2024-08-15 08:40] VITALS: BP 144/80; PULSE 63; RESP 18; TEMP 37.3; O2SAT 99; BMI 26.8
[2024-08-15] MEDS: diazePAM 5 MG TABLET PO (10:44)
[2024-08-15] MEDS: Ibuprofen 800 MG TABLET PO (10:44)
--- NOTE | 2024-08-15 11:17 | ED.NECK ---
HPI - Neck Pain/Injury General Chief Complaint: Neck Pain/Injury Stated Complaint: neck pain lifting at work Time Seen by Provider: 08/15/24 09:28 Source: patient Mode of arrival: ambulatory Limitations: no limitations History of Present Illness HPI Narrative: This is a 34 years old male presented to the emergency department with a chief complaint of neck pain x2 days he work at [employer] and he has been lifting heavy weight. He has been having neck pain for 2 days no direct trauma feels stiff as well MD complaint: neck pain Onset (ago): day(s) (2) Severity: moderate Quality: burning Duration: constant Relieving factors: none Exacerbating factors: movement of neck Context: other (Lifting weight) Related Data Previous Rx's ?Medication ?Instructions ?Recorded docusate sodium 100 mg capsule 100 mg PO BID PRN constipation #30 04/30/23 (Colace) caps famotidine 20 mg tablet (Pepcid) 20 mg PO BID PRN abdominal 04/30/23 discomfort #60 tabs ondansetron 4 mg disintegrating 4 mg PO Q8H PRN nausea and 04/30/23 tablet vomiting #20 tabs polyethylene glycol 3350 17 17 g PO DAILY PRN constipation 04/30/23 gram/dose oral powder (ClearLax) #238 grams cyclobenzaprine 10 mg tablet 10 mg PO TID PRN muscle spasm #14 08/15/24 tabs naproxen 500 mg tablet (Naprosyn) 500 mg PO BID PRN PAIN #20 tabs 08/15/24 Allergies Allergy/AdvReac Type Severity Reaction Status Date / Time No Known Allergies Allergy Verified 08/15/24 08:41 Review of Systems Eyes: Eyes: Reports no additional eye complaints Cardiovascular: Cardiovascular: Reports no additional cardiovascular complaints Respiratory: Respiratory: Reports no additional respiratory complaints Integumentary/Breasts: Skin/Breast: Reports system reviewed and no additional complaints, except as docu [facility] Past Medical History Attestation statement: The following information was validated with the patient. [facility] Narrative: Denies any major medical problems Medical History Abnormal EKG SOB (shortness of breath) Precordial chest pain Family History Family History Father No problems noted. Mother Hypertension Depression Anxiety PTSD (post-traumatic stress disorder) Paternal Uncle Cancer Social History Social History Alcohol intake: never Patient Tobacco Use Status: Former Tobacco user Substance Use Type: Marijuana Advance Directives: No Advance Directives Information Provided: Yes Physical Exam Vital Signs: Vital Signs: Last Vital Signs Temp 97.8 F 08/15/24 12:00 Pulse 47 L 08/15/24 12:00 Resp 16 08/15/24 12:00 BP 112/67 08/15/24 12:00 Pulse Ox 100 08/15/24 12:00 O2 Del Method Room Air 08/15/24 12:00 BMI result Body Mass Index 26.8 No acute distress Const: General: cooperative and comfortable Nutritional Appearance: well nourished Orientation/consciousness: patient oriented x3 HEENT: Head: Yes normal to inspection Ears: hearing grossly normal bilaterally General nose exam: Normal external nose present Face and sinus: Yes normal facial exam Mouth: Normal oral and palatal mucosa present Throat: Yes posterior oropharynx normal Neck: Other: Tenderness posterior aspect of the neck Neck: Yes full ROM Resp: Effort & Inspection: normal respiratory effort Cardio: Jugular venous distension: no JVD Rate: regular rate Rhythm: regular rhythm GI: Inspection: Yes normal to inspection Palpation (GI): Soft to palpation, not firm and nontender : General: Yes no CVA tenderness Back/Spine/Pelvis: Back: no CVA tenderness Neuro: Other: Awake alert oriented x3 cranial nerve intact no deficits in strength or sensation normal neuro exam General: patient oriented x3 Course Reevaluation(s) Reevaluation #1: On re-examination the patient is doing better is able to move his neck right now imaging are negative no acute fracture or dislocation I think at this point he can be discharged home is neurologically intact he can follow-up as outpatient with primary care physician Time: 14:54 Medications Administered Discontinued Medications Generic Name Dose Route Start Last Admin Trade Name Freq PRN Reason Stop Dose Admin Acetaminophen 975 mg 08/15/24 11:20 08/15/24 12:19 Acetaminophen 325 Mg Tablet PO 08/15/24 11:21 975 mg ONCE ONE Administration Diazepam 5 mg 08/15/24 10:00 08/15/24 10:44 Diazepam 5 Mg Tablet PO 08/15/24 10:01 5 mg ONCE ONE Administration Ibuprofen 800 mg 08/15/24 10:00 08/15/24 10:44 Ibuprofen 800 Mg Tablet PO 08/15/24 10:01 800 mg ONCE ONE Administration Oxycodone HCl 5 mg 08/15/24 13:23 08/15/24 13:49 Oxycodone Hcl Immed Release 5 Mg Tablet PO 08/15/24 13:24 5 mg ONCE ONE Administration Medical Decision Making Medical Decision Making [facility] Narrative: Patient presented with neck pain and x2 days no direct trauma he has been lifting at work and was likely muscular we will obtain imaging administer analgesia Differential Diagnosis Differential Diagnoses: The differential diagnosis associated with the presentation includes Muscular pain/neck strain/unlikely fracture there is no direct trauma Admission/Observation Consideration of admission/observation: Escalation of care including admission/observation considered Lab Data [facility] Lab Attestation statement: I reviewed the patient's lab results. Independent Interpretation I performed an independent interpretation of an: CT Scan Interpretation: No fx Radiology Impression Discussion of test interpretation with radiology: I have reviewed the radiologist's reading. Radiologist Impression: EXAMINATION: XR CERVICAL SPINE 2-3 VIEWS HISTORY: pain COMPARISON: There are no prior studies for comparison. FINDINGS: AP, lateral, and open-mouth odontoid views of the cervical spine are submitted. Osseous mineralization is normal. Seven cervical vertebral bodies are identified maintaining normal height and alignment without evidence of fracture or subluxation. There is slight depression involving the inferior endplate of T1 of uncertain significance. The intervertebral disc spaces are preserved. The odontoid and lateral masses of C1 are intact. There is no prevertebral soft tissue swelling. XR/XR cervical spine 3V IMPRESSION: Slight depression of the inferior endplate of T1 of uncertain significance. If there is a history of trauma, CT could be performed. Electronically signed by: Huang Pepe MD 08/15/2024 10:32 AM EDT Dictated By: Huang Pepe MD Signed By: <Electronically signed by Huang Pepe MD in OV> 08/15/24 1032 CENTRAL CANAL: -No evidence of high-grade central canal narrowing or large disc herniation allowing for modality limitations. PREVERTEBRAL AND PARAVERTEBRAL SOFT TISSUES: -No prevertebral or paravertebral soft tissue edema or swelling. No abnormal fluid collection. -Normal thyroid. -No mass or adenopathy within the neck. LUNG APICES: -Clear bilaterally. IMAGED INTRACRANIAL STRUCTURES: -Normal. CT/CT cervical spine wo IV con IMPRESSION: 1. No CT evidence of acute cervical spine fracture or injury. 2. Minimal ventral wedging of T1, felt to lie within the realm of normal variation. Electronically signed by: Chidi Hawkins MD 08/15/2024 01:01 PM EDT RP DD/ 1010 TD/TT: 08/15/24 1020 Discharge Plan Discharge Clinical Impression: Neck pain Patient Disposition: Home, Self-Care Instructions: Neck Pain (ED) Additional Instructions: Follow-up with your primary care physician, return to the emergency room if you worse any concern if you have a fever if you vomiting if you have weakness in the arms or legs if you have numbness in the arms or legs. We sent anti-inflammatory and muscle relaxant to [facility] Prescriptions: New naproxen [Naprosyn] 500 mg tablet 500 mg PO BID PRN (Reason: PAIN) Qty: 20 0RF cyclobenzaprine 10 mg tablet 10 mg PO TID PRN (Reason: muscle spasm) Qty: 14 0RF No Action famotidine [Pepcid] 20 mg tablet 20 mg PO BID PRN (Reason: abdominal discomfort) Qty: 60 0RF docusate sodium [Colace] 100 mg capsule 100 mg PO BID PRN (Reason: constipation) Qty: 30 0RF ondansetron 4 mg tablet,disintegrating 4 mg PO Q8H PRN (Reason: nausea and vomiting) Qty: 20 0RF polyethylene glycol 3350 [ClearLax] 17 gram/dose powder 17 g PO DAILY PRN (Reason: constipation) Qty: 238 0RF Stand Alone Forms: Work/School Release Print Language: Urdu
[2024-08-15 11:22] VITALS: BP 119/69; PULSE 46; RESP 14; TEMP 36.6; O2SAT 98
[2024-08-15 12:00] VITALS: BP 112/67; PULSE 47; RESP 16; TEMP 36.6; O2SAT 100
[2024-08-15] MEDS: Acetaminophen 325 MG TABLET 975 MG PO (12:19)
[2024-08-15] MEDS: oxyCODONE HCl Immed Release 5 MG TABLET PO (13:49)
[2024-08-15 15:15] VITALS: BP 110/72; PULSE 62; RESP 16; TEMP 36.8; O2SAT 99
[2024-08-15 15:20] VITALS: BP 110/72; PULSE 62; RESP 16; TEMP 36.8; O2SAT 99
== END 2024-08-15 15:21 | disposition home or self-care (01) ==
PROVIDERS: Emergency Provider Emergency Medicine
DX: M54.2 Cervicalgia (principal)
CPT/HCPCS: 72040; 72125; 99284

== ENCOUNTER → 2024-08-15 09:59 | Outpatient (BNV) | payer OTHER, SELFPAY | PROVIDERS: Emergency Provider Emergency Medicine; Visit Provider Radiology Diagnostic Radiology | DX: S22.010A Wedge compression fracture of first thoracic vertebra, initial encounter for closed fracture (principal); M54.2 Cervicalgia | CPT/HCPCS: 72040; 72125 ==